=== PATIENT | female | born 1950 | race Caucasian/White ===

== ENCOUNTER 2020-12-11 05:46 | Emergency (ER) | payer MEDICARE, OTHER ==
[~2020-12-11] VITALS: Ht 172.7 cm; Wt 59.1 kg
--- NOTE | 2020-12-11 06:06 | EKG ---
[address] [address] Test Date: 2020-12-11 Test Time: 05:55:14 Pat Name: ZIA MCLAUGHLIN Department: Room: Gender: F Dental Practice Manager: : 1950 Requested By: BAO KU Order Number: [id number] Reading MD: Jc Balbuena Measurements Intervals Crawford Rate: 57 P: 90 ID: [id number] QRS: 78 QRSD: 106 T: 31 QT: 458 QTc: 449 Interpretive Statements SINUS RHYTHM LEFT ATRIAL ABNORMALITY Electronically Signed On 12-13-2020 13:26:06 CDT by Jc Balbuena
[2020-12-11] MEDS ORDERED: IV NORMAL SALINE 1,000ML 1,000 ML IV SCH (06:15)
[2020-12-11] MEDS ORDERED: METOCLOPRAMIDE HCL 10 MG/2 ML VIAL. IVP ONE (06:15)
[2020-12-11] MEDS ORDERED: FAMOTIDINE 20 MG/2 ML VIAL IVP ONE (06:15)
[2020-12-11 06:31] LABS: BASO # 0.1 x10^3/uL (0.0-0.2); BASO % 1 % (0-3); EOS # 0.1 x10^3/uL (0.0-0.7); EOS % 1 % (0-3); HEMATOCRIT 40.6 % (36.0-47.0); HEMOGLOBIN 13.4 g/dL (12.0-15.5); LYMPH # 1.7 x10^3/uL (1.0-4.8); LYMPH % 16 % (24-48); MEAN CORPUSCULAR HEMOGLOBIN 31 pg (25-35); MEAN CORPUSCULAR HGB CONC 33 g/dL (31-37); MEAN CORPUSCULAR VOLUME 95 fL (79-100); MONO # 0.6 x10^3/uL (0.0-1.1); MONO % 6 % (0-9); NEUT # 7.9 x10^3uL (1.8-7.7); NEUT % 77 % (31-73); PLATELET COUNT 224 x10^3/uL (140-400); RED BLOOD COUNT 4.26 x10^6/uL (3.50-5.40); RED CELL DISTRIBUTION WIDTH 13.2 % (11.5-14.5); WHITE BLOOD COUNT 10.3 x10^3/uL (4.0-11.0)
--- NOTE | 2020-12-11 06:33 | PHYS DOC ---
Past History Additional Past Medical Histor: PARKINSONS Past Surgical History: Hysterectomy Alcohol Use: None General Adult EDM: Chief Complaint: ABDOMINAL PAIN HPI: HPI: 70-year-old female past medical history of Parkinson's, presents the ED with complaints of epigastric and left upper quadrant nonradiating abdominal pain that started around midnight stating " I feel like someone is grabbing my innerds and squeezing." No prior history of similar symptoms. Cannot recall her last bowel movement reports she suffers from constipation due to her Parkinson's medications (follows at ). Denies any alcohol use or drug use. [facility]. PCP Dr. Brower. Also states she follows with a squirrel man for infection of her scalp (keroin?). Review of Systems: Review of Systems: Constitutional: Denies fever or chills Eyes: Denies change in visual acuity HENT: Denies nasal congestion or sore throat Respiratory: Denies cough or shortness of breath Cardiovascular: Denies chest pain or edema GI: Denies nausea, vomiting, bloody stools or diarrhea : Denies dysuria or hematuria Musculoskeletal: Denies back pain or joint pain Integument: Denies rash or diaphoresis Neurologic: Denies headache, focal weakness or sensory changes Endocrine: Denies polyuria or polydipsia Lymphatic: Denies swollen glands Psychiatric: Denies depression or anxiety Current Medications: Current Meds: Current Medications Medications (Trade) Dose Ordered Sig/Lito Start Time Stop Time Status Last Admin Dose Admin Famotidine (Pepcid Vial) 20 mg 1X ONCE 12/11/20 06:15 12/11/20 06:18 DC 12/11/20 06:16 20 MG Iohexol (Omnipaque 300 Mg/ml) 75 ml 1X ONCE 12/11/20 06:30 12/11/20 06:31 UNV Metoclopramide HCl (Reglan Vial) 10 mg 1X ONCE 12/11/20 06:15 12/11/20 06:18 DC 12/11/20 06:16 10 MG Sodium Chloride 1,000 ml @ 1,000 mls/hr Q1H 12/11/20 06:15 12/11/20 07:14 12/11/20 06:16 1,000 MLS/HR Allergies: Allergies: Allergies Coded Allergies Type Severity Reaction Last Updated Verified No Known Drug Allergies 12/11/20 No Physical Exam: PE: Constitutional: Well developed, well nourished, no acute distress, non-toxic appearance. HENT: Normocephalic, atraumatic, very thin hair with dandruff Eyes: EOMI, conjunctiva normal, no discharge. Neck: Normal range of motion, supple, Cardiovascular: S1/2 present, regular rhythm Lungs & Thorax: Speaking in full sentences, bilateral equal chest rise, no tachypnea on my exam, (rr 50 per rn) or increased work of breathing Abdomen: soft, some epigastric tenderness but pain is more localized in the left upper quadrant with no rigidity or guarding Skin: Warm, dry, no erythema, no rash. [] Back: No tenderness, no CVA tenderness. [] Extremities: No tenderness, no cyanosis, Neurologic: Alert and oriented X 3, normal motor function, normal sensory function, no focal deficits noted. [] Psychologic: Affect normal, judgement normal, mood normal. [] Current Patient Data: Vital Signs: Vital Signs Date Time Temp Pulse Resp B/P (MAP) Pulse Ox O2 Delivery O2 Flow Rate FiO2 12/11/20 06:04 97.7 66 50 138/79 (98) Room Air EKG: EKG: Sinus bradycardia 57 bpm, no axis deviation, normal intervals, T wave inversion V2, no ST elevation or ST depression Radiology/Procedures: Radiology/Procedures: IMAGING REPORT Signed PATIENT: ZIA MCLAUGHLIN ACCOUNT: [id number] : 1950 LOCATION: ER AGE: 70 SEX: F EXAM STATUS: REG ER ORD. PHYSICIAN: BAO KU DO REASON: epigastric/luq pain PROCEDURE: PORTABLE CHEST 1V XR CHEST 1V CLINICAL INDICATIONS: Reason: epigastric/left upper quadrant abdominal pain COMPARISON: None available. Findings: Hyperinflation is seen consistent with COPD. No acute lung infiltrate or pleural effusion or pulmonary edema or lung mass or pneumothorax is seen. The heart size, pulmonary vasculature, mediastinum and both maria victoria are unremarkable. IMPRESSION: COPD. No acute radiographic abnormality is seen. Electronically signed by: Zach Her MD (12/11/2020 7:38 AM) [id number] DICTATED AND SIGNED BY: ZACH HER MD DATE: 12/11/20 0736 CC: BAO KU DO; SERVANDO BROWER MD ~MTH0 0 IMAGING REPORT Signed PATIENT: ZIA MCLAUGHLIN ACCOUNT: [id number] : 1950 LOCATION: ER AGE: 70 SEX: F EXAM STATUS: REG ER ORD. PHYSICIAN: BAO KU DO REASON: epigastric/luq pain, OMNI 300, 75ml PROCEDURE: CT ABD PELV W/ IV CONTRST ONLY CT ABDOMEN+PELVIS W dated 12/11/2020 7:02 AM Indication:Reason: epigastric/luq pain, OMNI 300, 75ml / Spl. Instructions: / History: Comparison: No comparison is available. Technique: CT images were performed using an infusion of 74 mL Omnipaque 300. One or more of the following individualized dose reduction techniques were utilized for this examination: 1. Automated exposure control 2. Adjustment of the mA and/or kV according to patient size 3. Use of iterative reconstruction technique Findings: There are a few increased markings in the right lower lobe adjacent to the diaphragm. This could indicate focal small airway opacity such as from aspiration additional bandlike density abutting the diaphragm has configuration consistent with atelectasis. The lung bases otherwise appear clear. There are some secretions within left lower lobe bronchi. The liver and spleen are homogeneous in density and normal in configuration. There is a trace of ascites adjacent to the liver. Both kidneys enhance with contrast. No mass or obstruction is seen. The adrenal glands are not enlarged. The pancreas appears normal. No retroperitoneal or mesenteric adenopathy is seen. There is no apparent abdominal mass. No bowel obstruction is seen. There is a large amount of stool throughout the colon. There could be some thickening of the wall of the stomach, although the stomach was poorly distended. Images through the pelvis show no abnormality of the distal ureters or bladder. No pelvic or inguinal adenopathy is seen. There is no apparent pelvic soft tissue mass. There is some free fluid on the right side of the pelvis. Some bowel loops in the right pelvis may have mild wall thickening. This could be distal small bowel. No other inflammatory process is seen. At least a short segment of the appendix appears to be visualized lateral to the cecum and shows no abnormality. IMPRESSION: There is a mild amount of free fluid in the abdomen and pelvis. There are 2 potential areas of bowel inflammation. A segment of distal small bowel appears to have mild wall thickening, raising the possibility of inflammatory bowel disease or enteritis. There could also be some thickening of the wall the stomach, although it was poorly distended for the exam. Electronically signed by: Birgit Perez Jr., MD (12/11/2020 7:46 AM) [id number] DICTATED AND SIGNED BY: BIRGIT PEREZ Jr, MD DATE: 12/11/20 0736 CC: BAO KU DO; SERVANDO BROWER MD ~MTH0 0 Heart Score: C/O Chest Pain: No Risk Factors: Risk Factors: DM, Current or recent (<one month) smoker, HTN, HLP, family history of CAD, obesity. Risk Scores: Score 0 - 3: 2.5% MACE over next 6 weeks - Discharge Home Score 4 - 6: 20.3% MACE over next 6 weeks - Admit for Clinical Observation Score 7 - 10: 72.7% MACE over next 6 weeks - Early Invasive Strategies Course & Med Decision Making: Course & Med Decision Making Pertinent Labs and Imaging studies reviewed. (See chart for details) Concern for upper abdominal pain in the setting of stomach wall thickening, possible enteritis or IBD. Will prescribe Pepcid and Bentyl for symptoms. On reevaluation patient states pain is well controlled. Will discharge home with strict ED return precautions were given for severe pain, nausea, vomiting, diarrhea, fever or bloody stools. Encouraged urgent outpatient follow-up with PMD and GI for definitive management. Life-threatening processes were considered but are low suspicion at this time, given history, physical exam and ED workup. Pt was educated on all prescription medications and adverse effects. All patient's questions were answered and pt was stable at time of discharge. Life/limb-threatening differential includes but is not limited to, aortic dissection, aortic aneurysm, acute coronary syndrome, surgical abdomen (appendicitis, cholecystitis, ischemic bowel, strangulated hernia, etc), bowel obstruction or volvulus, bladder outlet obstruction, gastrointestinal bleeding, inflammatory bowel disease, peptic ulcer disease, ACS/CAD, sepsis, diverticular disease, ureterolithiasis, nephrolithiasis, ovarian or testicular torsion, ectopic , vaginal hemorrhage, or genitourinary infection. I have spoken with the patient and/or caregivers. I explained the patient's condition, diagnoses and treatment plan based on the information available to me at this time. I have answered the patient and/or caregiver's questions and addressed any concerns. The patient and/or caregivers have a good understanding of patient's diagnosis, condition and treatment plan as can be expected at this point. Vital signs have been stable. Patient's condition is stable and appropriate for discharge from the emergency department. Patient will pursue further outpatient evaluation with primary care physician or other designated or consulting physician as outlined in the discharge instructions. The patient and/or caregivers are agreeable to this plan of care and follow-up instructions have been explained in detail. The patient and/or caregivers have received these instructions in written form and have expressed an understanding of the discharge instructions. The patient and/or caregivers are aware that any significant change of condition or worsening of symptoms should prompt immediate return to this or the closest emergency department or call to [id number] Disclaimer: Andrea Disclaimer: This electronic medical record was generated, in whole or in part, using a voice recognition dictation system. Departure Departure: Impression: Primary Impression: Enteritis Disposition: 01 HOME / SELF CARE / HOMELESS Condition: STABLE Referrals: SERVANDO BROWER MD (PCP) Follow up with your pcp in 1-2 days or [facility] [phone] OR [facility]-Dr. Richardson [phone] Patient Instructions: Gastritis, Adult, Irritable Bowel Syndrome Additional Instructions: FOLLOW UP WITH GASTROENTEROLOGY: For definitive management of enteritis versus GERD versus inflammatory bowel disease [facility], [place] [address], [address] [place] [address] OR [facility] [address], [address] [address] EMERGENCY DEPARTMENT GENERAL DISCHARGE INSTRUCTIONS Thank you for coming to [facility] (ED) today and trusting us with you care. We trust that you had a positivie experience in our Emergency Department. If you wish to speak to the department management, you may call the director at [phone]. YOUR FOLLOW UP INSTRUCTIONS ARE FOLLOWS: 1. Do you have a private Doctor? If you do not have a private doctor, please ask for a resource list of physicians or clinics that may be able to assist you with follow up care. 2. The Emergency Physician has interpreted your x-rays. The X-Ray specialist will also review them. If there is a change in the findings, you will be notified in 48 hours when at all possible. 3. A lab test or culture has been done, your results will be reviewed and you will be notified if you need a change in treatment. ADDITIONAL INSTRUCTIONS AND INFORMATION: 1. Your care today has been supervised by a physician who is specially trained in emergency care. Many problems require more than one evaluation for a complete diagnosis and treatment. We recommend that you schedule your follow up appointment as recommended to ensure complete treatment of you illness or injury. If you are unable to obtain follow up care and continue to have a problem, or if your condition worsens, we recommend that you return to the ED. 2. We are not able to safely determine your condition over the phone nor are we able to give sound medical advice over the phone. For these safety reasons, if you call for medical advice we will ask you to come to the ED for further evaluation. 3. If you have any questions regarding these discharge instructions please call the ED at [phone]. SAFETY INFORMATION: In the interest of safety, wellness, and injury prevention; we encourage you to wear your sealbelt, if you smoke; quite smoking, and we encourage family to use a protective helmet for bicycling and other sporting events that present an increased risk for head injury. IF YOUR SYMPTOMS WORSEN OR NEW SYMPTOMS DEVELOP, OR YOU HAVE CONCERNS ABOUT YOUR CONDITION; OR IF YOUR CONDITION WORSENS WHILE YOU ARE WAITING FOR YOUR FOLLOW UP APPOINTMENT; EITHER CONTACT YOUR PRIMARY CARE DOCTOR, THE PHYSICIAN WHOSE NAME AND NUMBER YOU WERE GIVEN, OR RETURN TO THE ED IMMEDIATELY. Scripts Dicyclomine Hcl (DICYCLOMINE HCL) 10 Mg Capsule 1 CAP PO TID for enteritis vsinflammatory bowel for 10 Days, #30 CAP 11 Refills Prov: BAO KU DO 12/11/20 Famotidine (PEPCID) 20 Mg Tablet 1 TAB PO BID for enteritis for 10 Days, #20 TAB 3 Refills Prov: BAO KU DO 12/11/20 BAO KU DO Dec 11, 2020 06:33
[2020-12-11 06:36] LABS: CALCIUM 9.9 mg/dL (8.5-10.1); CREATININE 0.6 mg/dL (0.6-1.0); GFR 98.3; POTASSIUM 4.3 mmol/L (3.5-5.1)
[2020-12-11] MEDS ORDERED: CONTRAST GIVEN. MC PRN (06:45)
[2020-12-11 06:50] LABS: DIRECT BILIRUBIN 0.1 mg/dL (0.0-0.2); TOTAL BILIRUBIN 0.6 mg/dL (0.2-1.0); TOTAL PROTEIN 6.9 g/dL (6.4-8.2)
[2020-12-11] MEDS ORDERED: IOHEXOL 300 MG/ML 75 ML VIAL. IV ONE (07:00)
--- NOTE | 2020-12-11 07:40 | RAD ---
XR CHEST 1V CLINICAL INDICATIONS: Reason: epigastric/left upper quadrant abdominal pain COMPARISON: None available. Findings: Hyperinflation is seen consistent with COPD. No acute lung infiltrate or pleural effusion o r pulmonary edema or lung mass or pneumothorax is seen. The heart size, pulmonary vasculature, media stinum and both maria victoria are unremarkable. IMPRESSION: COPD. No acute radiographic abnormality is seen. Electronically signed by: Rohith Her MD (12/11/2020 7:38 AM) [id number]
--- NOTE | 2020-12-11 07:48 | RAD ---
CT ABDOMEN+PELVIS W dated 12/11/2020 7:02 AM Indication:Reason: epigastric/luq pain, OMNI 300, 75ml / Spl. Instructions: / History: Comparison: No comparison is available. Technique: CT images were performed using an infusion of 74 mL Omnipaque 300. One or more of the following individualized dose reduction techniques were utilized for this examinat ion: 1. Automated exposure control 2. Adjustment of the mA and/or kV according to patient size 3. Use of iterative reconstruction technique Findings: There are a few increased markings in the right lower lobe adjacent to the diaphragm. This could elizabeth louise focal small airway opacity such as from aspiration additional bandlike density abutting the yessy phragm has configuration consistent with atelectasis. The lung bases otherwise appear clear. There ar e some secretions within left lower lobe bronchi. The liver and spleen are homogeneous in density and normal in configuration. There is a trace of ascites adjacent to the liver. Both kidneys enhance wit h contrast. No mass or obstruction is seen. The adrenal glands are not enlarged. The pancreas appears normal. No retroperitoneal or mesenteric adenopathy is seen. There is no apparent abdominal mass. No bowel obstruction is seen. There is a large amount of stool throughout the colon. There could be jane e thickening of the wall of the stomach, although the stomach was poorly distended. Images through the pelvis show no abnormality of the distal ureters or bladder. No pelvic or inguinal adenopathy is seen. There is no apparent pelvic soft tissue mass. There is some free fluid on the ri ght side of the pelvis. Some bowel loops in the right pelvis may have mild wall thickening. This coul d be distal small bowel. No other inflammatory process is seen. At least a short segment of the appen renae appears to be visualized lateral to the cecum and shows no abnormality. IMPRESSION: There is a mild amount of free fluid in the abdomen and pelvis. There are 2 potential areas of bowel inflammation. A segment of distal small bowel appears to have mild wall thickening, raising the possi bility of inflammatory bowel disease or enteritis. There could also be some thickening of the wall th e stomach, although it was poorly distended for the exam. Electronically signed by: Rigo Perez Jr., MD (12/11/2020 7:46 AM) [id number]
[2020-12-11 07:55] VITALS: BP 141/86
[2020-12-11] MEDS ORDERED: KETOROLAC 15 MG/ML VIAL. IVP ONE (08:00)
[2020-12-11 08:31] LABS: BILIRUBIN,URINE NEG (NEG); CLARITY,URINE CLOUDY; COLOR,URINE YELLOW; GLUCOSE,URINE NEG (NEG)
[2020-12-11 08:32] LABS: AMORPHOUS SEDIMENT,UR PRESENT /HPF; BACTERIA,URINE 0 /HPF (0-FEW); NITRITE,URINE NEG (NEG); RBC,URINE OCC /HPF (0-2); SQUAMOUS EPITHELIAL CELL,UR FEW /LPF; UROBILINOGEN,URINE 0.2 mg/dL (0.2 mg/dL)
[2020-12-11] MEDS ORDERED: FAMO-63 PO (08:40)
[2020-12-11] MEDS ORDERED: DICY10CA3 PO (08:44)
== END 2020-12-11 08:50 | disposition home or self-care (01) ==
LOC: ER 05:46
DX: K52.9 Noninfective gastroenteritis and colitis, unspecified (principal); Z90.710 Acquired absence of both cervix and uterus
CPT/HCPCS: 36415; 71045; 74177; 80048; 80076; 81001; 82550; 83690; 83735; 83880; 84484; 85025; 87086; 93005; 96361; 96374; 96375; 99285; J1885; J2765; J3490; J7030; Q9967

== ENCOUNTER → 2021-01-20 | Outpatient (CLI) | payer MEDICARE, OTHER ==
[~2021-01-20] MED LIST: DICY10CA3 PO; FAMO-63 PO
--- NOTE | 2021-01-20 10:20 | RAD ---
XR FOOT_RIGHT 3 VIEWS Clinical indications: Reason: RIGHT FOOT PAIN AFTER TRIPPING LAST NIGHT, BRUISING AND SWELLING / Spl. Instructions: / History: Findings: There is a small bone fragment of the medial proximal corner of the first proximal phalanx . 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 No fracture line is evident elsewhere. No dislocation is seen. No periosteal reaction is evident. No plantar spur of the calcaneus is seen. IMPRESSION: Small bone fragment of the proximal medial aspect of the first proximal phalanx with over lying soft tissue swelling. This is an age indeterminate fracture and clinical correlation is needed. Soft tissue swelling could be related to acute fracture or bunion. Electronically signed by: Rohith Her MD (01/20/2021 10:18 AM) [id number]
== END ==
LOC: RAD 09:55
PROVIDERS: ATTEND Internal Medicine
DX: S99.921A Unspecified injury of right foot, initial encounter (principal); M19.071 Primary osteoarthritis, right ankle and foot; M79.89 Other specified soft tissue disorders; X58.XXXA Exposure to other specified factors, initial encounter; Y93.89 Activity, other specified; Y92.89 Other specified places as the place of occurrence of the external cause; Y99.8 Other external cause status
CPT/HCPCS: 73630